=== PATIENT | male | born 1950 | race Two or more races ===

== ENCOUNTER 2021-06-15 08:37 | Day surgery (SDC) | payer MEDICAID, SELFPAY ==
[~2021-06-15] VITALS: Ht 154.9 cm; Wt 49.9 kg
[2021-06-15] MEDS ORDERED: LIDOCAINE 2% 100 MG/5 ML UJET TP ONE (11:53)
[2021-06-15] MEDS ORDERED: MIDAZOLAM 5 MG/5 ML VIAL ONE (11:53)
[2021-06-15] MEDS ORDERED: fentaNYL citrate 0.05 MG/ML VIAL ONE (11:53)
[2021-06-15] MEDS ORDERED: fentaNYL citrate 0.05 MG/ML VIAL IVP ONE (13:00)
[2021-06-15] MEDS ORDERED: MIDAZOLAM 2 MG/2 ML VIAL IVP ONE (13:00)
[2021-06-15] MEDS ORDERED: MIDAZOLAM 2 MG/2 ML VIAL IVP SCH (13:32)
[2021-06-15] MEDS ORDERED: fentaNYL citrate 0.05 MG/ML VIAL IVP SCH (13:32)
== END 2021-06-15 13:25 | disposition home or self-care (01) ==
LOC: MMU 08:37 → MDS 08:37
PROVIDERS: ATTEND Internal Medicine Gastroenterology
DX: D50.9 Iron deficiency anemia, unspecified (principal); K57.30 Diverticulosis of large intestine without perforation or abscess without bleeding; K21.9 Gastro-esophageal reflux disease without esophagitis; Z20.822 Contact with and (suspected) exposure to COVID-19
CPT/HCPCS: 45378; 87426; J2250; J3010